=== PATIENT | male | born 1950 | race Caucasian/White ===

== ENCOUNTER 2021-01-20 23:20 | Emergency (ER) | payer OTHER ==
[~2021-01-20] VITALS: Ht 170.2 cm; Wt 77.1 kg
[2021-01-20 23:56] VITALS: BP 130/81
--- NOTE | 2021-01-21 | NUR ---
TO LOBBY A/W BED AMBULATORY
--- NOTE | 2021-01-21 00:26 | NUR ---
PT TAKEN TO BED 1
[2021-01-21] MEDS ORDERED: FAMOTIDINE 20 MG TAB PO ONE (01:00)
[2021-01-21] MEDS ORDERED: ALUMINUM HYD/MAG/SIMETHICONE 30 ML UDC PO ONE (01:00)
[2021-01-21 01:21] LABS: BASOPHILS # (AUTO) 0.1 K/uL (0.00-0.22); BASOPHILS % (AUTO) 0.8 % (0.0-2.0); EOSINOPHILS # (AUTO) 0.1 K/uL (0-0.4); EOSINOPHILS % (AUTO) 1.4 % (0.0-4.0); HEMOGLOBIN 12.2 g/dL (12.0-18.0); LYMPHOCYTES % (AUTO) 15.9 % (20.5-51.1); MEAN CORPUSCULAR HEMOGLOBIN 35 pg (27-31); MEAN CORPUSCULAR HGB CONC 34 g/dL (33-37); MEAN CORPUSCULAR VOLUME 104.1 fL (80-94); MONOCYTES # (AUTO) 0.9 K/uL (0.8-1.0); MONOCYTES % (AUTO) 13.6 % (1.7-9.3); NEUTROPHILS # (AUTO) 4.5 K/uL (1.8-7.7); NEUTROPHILS % (AUTO) 68.3 % (42.2-75.2); PLATELET COUNT (AUTO) 145 K/uL (140-450); RED BLOOD CELL COUNT(AUTO) 3.46 MIL/uL (4.20-6.10); RED CELL DISTRIBUTION WIDTH 13.8 % (11.6-13.7); WHITE BLOOD COUNT (AUTO) 6.5 K/uL (4.8-10.8)
[2021-01-21] MEDS ORDERED: DICYCLOMINE HCL LIQUID 20 MG, ALUMINUM HYD/MAG/SIMETHICONE 30 ML, LIDOCAINE VISCOUS 2% ... PO ONE ×3 (01:30)
[2021-01-21 01:31] LABS: ALBUMIN 4.2 g/dL (3.4-5.0); ANION GAP 10.1 (8-16); CARBON DIOXIDE 27.4 mmol/L (21-32); CREATININE 0.7 mg/dL (0.6-1.3); POTASSIUM 3.5 mmol/L (3.5-5.1); TOTAL BILIRUBIN 0.5 mg/dL (0.0-1.0)
[2021-01-21] MEDS ORDERED: ALUMINUM HYD/MAG/SIMETHICONE 30 ML UDC ONE (01:48)
[2021-01-21] MEDS ORDERED: DICYCLOMINE HCL LIQUID 10 MG/5 ML UDC ONE (01:48)
[2021-01-21] MEDS ORDERED: FAMO-90 PO (03:05)
[2021-01-21 03:50] VITALS: BP 118/78
== END 2021-01-21 03:50 | disposition home or self-care (01) ==
LOC: MED 23:20
DX: R10.84 Generalized abdominal pain (principal); Z90.49 Acquired absence of other specified parts of digestive tract
CPT/HCPCS: 36415; 80053; 83690; 85025; 99283

== ENCOUNTER 2021-11-09 12:59 | Emergency (ER) | payer OTHER, MEDICAID ==
[~2021-11-09] VITALS: Ht 165.1 cm; Wt 72.2 kg
[~2021-11-09 12:59] MED LIST: FAMO-90 PO
[2021-11-09 13:19] VITALS: BP 144/77
--- NOTE | 2021-11-09 13:25 | NUR ---
Man calles in [facility] - 11/09/21 at 1326 by [facility] KATLIN
--- NOTE | 2021-11-09 13:26 | NUR ---
PT AMB TO BED 2.
--- NOTE | 2021-11-09 14:16 | NUR ---
71 y/o male c/o low back pain since yesterday. Patient was lifting cases of water bottles when he felt something pull on his back. Patient states this has happened once before. Patient denies any other trauma or injury. Patient has 10/10 pain. Medical History: BPH NKDA
--- NOTE | 2021-11-09 14:40 | NUR ---
Dr. Naranjo evaluating patient at bedside.
[2021-11-09] MEDS ORDERED: ACETAMINOPHEN EXTRA STRENGTH 500 MG TAB PO ONE (14:45)
[2021-11-09] MEDS ORDERED: KETOROLAC 60 MG/2 ML VIAL IM ONE (14:45)
[2021-11-09] MEDS ORDERED: IBUP-1842 PO (14:52)
[2021-11-09] MEDS ORDERED: ACET-10509 PO (14:52)
[2021-11-09 15:58] VITALS: BP 138/79
--- NOTE | 2021-11-09 15:58 | NUR ---
Patient discharged with v/s stable. Written and verbal after care instructions given. Patient alert, oriented and verbalized understanding of instructions. Ambulatory with steady gait. All questions addressed prior to discharge. ID band removed. Patient advised to follow up with PMD. Rx of ACETAMINOPHEN AND IBUPROFEN given. Opportunity to ask questions provided and answered.
--- NOTE | 2021-11-09 15:59 | NUR ---
Chart checked and completed. The patient's care was reviewed and supervised by Sarah Griffin RN.
== END 2021-11-09 15:58 | disposition home or self-care (01) ==
LOC: MED 12:59
DX: S39.012A Strain of muscle, fascia and tendon of lower back, initial encounter (principal); Z79.899 Other long term (current) drug therapy; X58.XXXA Exposure to other specified factors, initial encounter; Y93.89 Activity, other specified; Y92.89 Other specified places as the place of occurrence of the external cause; Y99.8 Other external cause status
CPT/HCPCS: 81002; 96372; 99283; J1885

== ENCOUNTER 2022-01-17 17:35 | Inpatient (IN) | payer OTHER, MEDICAID ==
[~2022-01-17] VITALS: Ht 162.6 cm; Wt 70.3 kg
[~2022-01-17 17:35] MED LIST changes: +ACET-10509 PO; +IBUP-1842 PO
[2022-01-17 17:44] VITALS: BP 151/89
[2022-01-17 19:53] LABS: BASOPHILS % (AUTO) 0.5 % (0.0-2.0); EOSINOPHILS # (AUTO) 0.1 K/uL (0-0.4); EOSINOPHILS % (AUTO) 1.5 % (0.0-4.0); HEMATOCRIT 35.9 % (36-52); HEMOGLOBIN 12.1 g/dL (12.0-18.0); LYMPHOCYTES # (AUTO) 1.1 K/uL (2.0-11.5); LYMPHOCYTES % (AUTO) 23.1 % (20.5-51.1); MEAN CORPUSCULAR HEMOGLOBIN 35 pg (27-31); MEAN CORPUSCULAR HGB CONC 34 g/dL (33-37); MEAN CORPUSCULAR VOLUME 103.6 fL (80-94); MONOCYTES # (AUTO) 0.9 K/uL (0.8-1.0); MONOCYTES % (AUTO) 17.9 % (1.7-9.3); NEUTROPHILS # (AUTO) 2.8 K/uL (1.8-7.7); PLATELET COUNT (AUTO) 143 K/uL (140-450); RED BLOOD CELL COUNT(AUTO) 3.47 MIL/uL (4.20-6.10); RED CELL DISTRIBUTION WIDTH 13.2 % (11.6-13.7); WHITE BLOOD COUNT (AUTO) 4.9 K/uL (4.8-10.8)
[2022-01-17 20:08] LABS: ALBUMIN 4.2 g/dL (3.4-5.0); ANION GAP 12.2 (8-16); CARBON DIOXIDE 26.9 mmol/L (21-32); CREATININE 0.7 mg/dL (0.6-1.3); POTASSIUM 4.1 mmol/L (3.5-5.1); TOTAL BILIRUBIN 0.6 mg/dL (0.0-1.0)
--- NOTE | 2022-01-17 20:25 | NUR ---
Patient ambulated to bed 11.
--- NOTE | 2022-01-17 20:40 | NUR ---
ASSUME CARE OF PT AT THIE TIME, PT LAYING IN BED 11, PT C/O RIGHT GROIN PAIN, PT WENT TO [facility] A FEW DAYS AGO FOR SAME PROBLEM, HE SAID THE DOCTOR SQUEEZED IT AND PUS CAME OUT, THEY SENT HIM HOME WITH ANTIBIOTIC AND PAINS MEDS, PT STATES HE HAS PAIN WHEN HIS PANTS RUBS AGAINST IT. PTPLACED IN GOWN.
--- NOTE | 2022-01-17 22:00 | NUR ---
PT AMBULATED TO RESTROOM WITH CANE ASSISTANCE.
[2022-01-17] MEDS ORDERED: PIPERACILLIN/TAZOBACTAM 3.375 GM in DEXTROSE 5% 50 ML IV ONE (22:20)
[2022-01-17] MEDS ORDERED: CLINDAMYCIN 600 MG in DEXTROSE 5% 50 ML IV ONE (22:20)
[2022-01-17] MEDS ORDERED: PIPERACILLIN/TAZOBACTAM 3.375 GM VIAL IV ONE (22:37)
[2022-01-17] MEDS ORDERED: CLINDAMYCIN 900 MG/6 ML VIAL IV ONE (22:37)
--- NOTE | 2022-01-17 23:00 | NUR ---
PT DENIES HAVING ANY PAIN AT PRESENT TIME.
[2022-01-17] MEDS ORDERED: MORPHINE SULFATE 4 MG/ML SYR IVP PRN (23:50)
[2022-01-17] MEDS ORDERED: DEXT 5% /NACL 0.9% 1,000 ML IV SCH (23:50)
--- NOTE | 2022-01-18 01:30 | NUR ---
Patient will be admitted to care of JJ ARRIAGA. Admited to MED/SURG. Will go to room 107A. Belongings list completed. Report to RAYNE ALVARADO.
[2022-01-18 01:46] VITALS: BP 158/88
--- NOTE | 2022-01-18 01:46 | NUR ---
RECEIVED PATIENT A NEW ADMIT FROM ER. PATIENT IS AWAKE, ALERT AND ORIENTED. DENIES PAIN AT THIS TIME. NO ACUTE RESPIRATORY DISTRESS NOTED. RIGHT GROIN SWELLING NOTED. SKIN WARM AND DRY TO TOUCH. BED IN THE LOWEST AND LOCKED POSITION FOR SAFETY, CALL LIGHT IN REACH. .
--- NOTE | 2022-01-18 06:34 | NUR ---
PATIENT IS ASLEEP. ALL NEEDS ATTENDED TO. NO DISTRESS NOTED. SAFETY PRECAUTIONS MAINTAINED DURING THE SHIFT, CALL LIGHT REMAINED WITHIN REACH.
--- NOTE | 2022-01-18 07:07 | NUR ---
REPORT GIVEN TO AM NURSE FOR CONTINUITY OF CARE. PATIENT ASLEEP. NO DISTRESS.
--- NOTE | 2022-01-18 07:08 | NUR ---
RECEIVED PT FROM WAFER FABRICATOR NURSE FOR CONTINUITY OF CARE. PT AWAKE IN BED. A&O4, ABLE TO COMMUNICATE NEEDS. RESPIRATIONS EVEN AND UNLABORED ON RA. NO DISTRESS NOTED. NO COMPLAINTS OF PAIN. PT NPO EXCEPT MEDS. SIGNS PLACED AT THE DOOR. PT AND EXTERMINATION SUPERVISOR AWARE. IV SITE AT LAC 20G, INFUSING D5NS AT 80ML/HR. NOTED RIGHT INGUINAL AREA COVERED WITH GAUZE. PT AGREED TO FULL CODE STATUS, AWARE. ORDER CARRIED OUT. CALL LIGHT WITHIN REACH. SAFETY PRECAUTIONS IN PLACE WILL CONTINUE TO MONITOR.
[2022-01-18 08:00] VITALS: BP 142/85
[2022-01-18] MEDS ORDERED: POTASSIUM CHLORIDE 10 MEQ TABER PO PRN (09:25)
[2022-01-18] MEDS ORDERED: guaiFENesin DM 200/20 MG-10 ML 10 ML UDC PO PRN (09:25)
[2022-01-18] MEDS ORDERED: ACETAMINOPHEN 325 MG TAB PO PRN (09:25)
[2022-01-18] MEDS ORDERED: ONDANSETRON 4 MG/2 ML VIAL IM/IVP PRN (09:25)
[2022-01-18] MEDS ORDERED: DOCUSATE SODIUM 100 MG GELCAP PO PRN (09:25)
[2022-01-18] MEDS ORDERED: HYDROcodone/APAP 7.5/325 MG 1 TAB PO PRN (09:25)
[2022-01-18] MEDS ORDERED: ZOLPIDEM 5 MG TAB PO PRN (09:25)
--- NOTE | 2022-01-18 10:20 | NUR ---
PT IN BED, AWAKE, RESTING. NO COMPLAINTS OF PAIN. NO DISTRESS NOTED. WILL CONTINUE TO MONITOR.
[2022-01-18 11:22] LABS: PROTHROMBIN TIME 10.9 secs (10.8-13.4)
[2022-01-18 11:35] LABS: AMYLASE 99 U/L (25-115); CHOL/HDL RATIO 2.8 (1-4.5); FREE T4 (FREE THYROXINE) 0.99 ng/dL (0.76-1.46); HDL CHOLESTEROL 59 mg/dL (40-60); LDL (CALC) 98 mg/dL (60-100); LIPASE 112 U/L (73-393); PHOSPHORUS 3.5 mg/dL (2.5-4.9); THYROID STIMULATING HORMONE 3.66 uIU/mL (0.34-3.74); TRIGLYCERIDES 49 mg/dL (30-150)
[2022-01-18] MEDS ORDERED: PIPERACILLIN/TAZOBACTAM 3.375 GM in DEXTROSE 5% 50 ML IV SCH (12:00)
--- NOTE | 2022-01-18 12:35 | NUR ---
PT STATED HE WANTS TO GO AMA. PT STATED HE COULDN'T WAIT FOR THE SURGEON ANYMORE AND THAT IT WAS TOO LATE. HE HAS NOT BEEN EATING SINCE HE WAS IN ER AND HE FELT LIKE THERE WAS NO PROGRESS. PT SAID HE WAS TIRED OF ALL THE BLOOD DRAWNS AND THE IV FLUIDS CONNECTED TO HIM. IT WAS EXPLAINED TO THE PT THE PROCESS AND THAT HE WILL BE SEEN BY THE SURGEON BUT STILL PT REFUSED TO STAY AND DECIDED TO GO AMA. PT'S WAS INFORMED. DR GARDNER AND CARITO GARCIA WERE ALSO INFORMED.
--- NOTE | 2022-01-18 13:15 | NUR ---
PT SIGNED AMA FORM. PT WAS PICKED UP . PT WHEELED OUT TO FRONT LOBBY BY NIR MIRANDA. REMOVED IV CATHETER INTACT. REMOVED ID WRIST BAND. PT HOME MEDS AND ALL OTHER BELONGINGS TAKEN UPON DC. PT IS STABLE.
[2022-01-18 13:53] LABS: APPEARANCE,URINE CLEAR (CLEAR); BILIRUBIN,URINE NEGATIVE (NEGATIVE); BLOOD, URINE 1+ (NEGATIVE); COLOR,URINE YELLOW (YELLOW); LEUKOCYTE ESTERASE ,URINE NEGATIVE (NEGATIVE); NITRITE, URINE NEGATIVE (NEGATIVE); PH,URINE 6.5 (5.0-9.0); UGLUCOSE NEGATIVE (NEGATIVE)
[2022-01-18 14:08] LABS: OTHER CASTS, URINE None Seen /LPF (None Seen); RBC,URINE 0-5 /HPF (0-5); WBC,URINE 0-5 /HPF (0-5)
[2022-01-19 08:07] LABS: T4 (THYROXINE) 7.7 ug/dL (4.5-12.0)
[2022-01-19] MEDS ORDERED: PANTOPRAZOLE 40 MG TABEC PO SCH (09:00)
--- NOTE | 2022-01-20 07:58 | NUR ---
LATE ENTRY- IV CLINDAMYCIN DISCONTINUED AT 0130.
== END 2022-01-18 14:15 | disposition left against medical advice (07) | DRG 603 ==
LOC: MED 17:35 → MMU 23:55 → MTU 01-18 00:25
PROVIDERS: ADMIT Family Medicine; ATTEND Family Medicine
DX: L02.214 Cutaneous abscess of groin (principal); E87.1 Hypo-osmolality and hyponatremia; K40.90 Unilateral inguinal hernia, without obstruction or gangrene, not specified as recurrent; Z20.822 Contact with and (suspected) exposure to COVID-19
CPT/HCPCS: 36415; 71045; 72193; 80053; 81001; 82150; 83036; 83690; 83735; 83880; 84100; 84436; 84439; 84443; 84479; 84484; 85025; 85610; 85730; 87040; 87081; 93005; 96365; 96367; 99285; J2543; J3490; J7060; Q0092; Q9967